=== PATIENT | male | born 1985 | race Caucasian/White ===

== ENCOUNTER 2019-01-07 17:42 | Emergency (ER) | payer SELFPAY ==
--- NOTE | 2019-01-07 17:50 | ED Physician Documentation ---
Hand Injury - HISTORIAN Historian: patient - HPI Stated Complaint: right hand pain x 3 days Chief Complaint: Hand Injury Onset: days ago Where: home Severity: moderate Duration: persistent since Context: other (he is not sure ) Location of Injury: R hand Modifying Factors: pain on movement Further Comments: yes (HE states under on the [place] side he had an area two days ago he did get green/yellow drainage from the area. He states the area has healed somewhat although he states today the hand started to swell and there has been increased pain over hand. No further drainage. He has not taken any meds OTC meds for the pain today. No fever. No injury) - ROS CONST: no problems NEURO: none CVS/RESP: none EYES/ENT: none MS/SKIN/LYMPH: other (small crusted area on right palm ) - PAST HX Past History: none Immunizations: UTD Allergies/Adverse Reactions: Allergies Allergy/AdvReac Type Severity Reaction Status Date / Time No Known Allergies Allergy Verified 01/07/19 17:56 Home Medications: Ambulatory Orders Medication Instructions Recorded NK 03/08/16 - SOCIAL HX Smoking History: cigarettes Alcohol Use: none Drug Use: none - FAMILY HX Family History: none - VITAL SIGNS Vital Signs: Vital Signs Temp Pulse Resp BP Pulse Ox 125/67 03/08/16 19:13 - REVIEWED ASSESSMENTS Nursing Assessment Reviewed: Yes Vitals Reviewed: Yes Progress - Progress Progress: 1850: Discussed results and plan he is agreeable. Discussed pain is slightly improved DG ED Results Lab/Radiology - Radiology Radiology Impressions: Right hand three views History: 3 days of hand pain Findings: The right hand is intact without fracture, dislocation, arthropathy, or focal bone lesion. An old nonunited ulnar styloid ossicle is present. Electronically signed on Jan 07, 2019 6:17:51 PM CDT by: Tim Mcginnis Hand Injury Physical Exam - Exam General Appearance: no acute distress, alert Hand: tenderness, soft tissue tenderness, swelling, limited ROM (with ops manager due to swelling ) Wrist: normal inspection, non-tender Neuro: sensation nml Vascular: no vascular compromise Forearm/Elbow/Arm: uninjured above wrist Skin: warm/dry, normal color Head/ENT: nml inspection Neck/Back: nml inspection Resp/CVS: chest non-tender, breath sounds nml, heart sounds nml, no resp. distress, lungs clear, reg. rate & rhythm Abdomen: non-tender Discharge Clincal Impression: Hand pain Qualifiers: Laterality: right Qualified Code(s): M79.641 - Pain in right hand Referrals: Primary Doctor,No [Primary Care Provider] - 2 Days Comments: 1. Bactrim DS take 1 by mouth every 12 hours x 7 days 2. Tramodol 50 mg take 1 by mouth every 8 hours as needed for pain 3. Epsom salt soaks/ice for comfort 4. OTC meds as directed as needed for symptom relief 5. See PCP in 2 days 6. Return to ER for any increasing concerns Condition: Stable Disposition: 01 HOME, SELF-CARE Decision to Admit: NO Date of Decison to Admit: 01/07/19 Decision Time: 18:53
[2019-01-07 17:56] VITALS: BP 118/58
[2019-01-07] MEDS ORDERED: KETOROLAC TROMETHAMINE 60 MG/2 ML VIAL IM ONE (18:26)
--- NOTE | 2019-01-07 18:32 | Diagnostic Imaging Report ---
TREVA ARNETT [facility] [address] [facility] [address] [place], [place]. [address] Report Submission Date: Jan 07, 2019 6:17:51 PM CDT Patient Study Name: MOIRA BROWN Date: Jan 07, 2019 5:56:40 PM CDT Modality Type: DX Gender: M Description: HAND 3 VIEWS OR MORE : 85 Institution: [facility] Physician: TREVA ARNETT Right hand three views History: 3 days of hand pain Findings: The right hand is intact without fracture, dislocation, arthropathy, or focal bone lesion. An old nonunited ulnar styloid ossicle is present. Electronically signed on Jan 07, 2019 6:17:51 PM CDT by: Tim PALACIOS
[2019-01-07] MEDS ORDERED: SULFAMETHOXAZOLE/TRIMETHOPRIM 800/160MG TAB PO ONE (18:48)
== END 2019-01-07 18:58 | disposition home or self-care (01) ==
LOC: ED 17:42
DX: M79.641 Pain in right hand (principal)
CPT/HCPCS: 73130; 96372; 99284; J1885; A9270